=== PATIENT | female | born 1975 | race Two or more races ===

== ENCOUNTER → 2020-08-28 | Outpatient (CLI) | payer OTHER ==
--- NOTE | 2020-08-28 16:29 | KCIC ---
Portable chest x-ray without comparison for TB exposure. FINDINGS: Lungs are clear. Cardiomediastinum is grossly unremarkable. No significant soft tissue or osseous abnormalities. IMPRESSION: 1. Normal chest x-ray. Electronically signed by: Bill Gould MD (08/28/2020 4:26 PM) [id number]
== END ==
LOC: KCIC 13:14
PROVIDERS: ATTEND Family Medicine
DX: Z20.1 Contact with and (suspected) exposure to tuberculosis (principal)
CPT/HCPCS: 71045